=== PATIENT | female | born 1985 | race Caucasian/White ===

== ENCOUNTER 2017-08-24 04:30 | Emergency (ER) | payer MEDICAID ==
[~2017-08-24] VITALS: Ht 175.3 cm; Wt 92.3 kg
[2017-08-24] MEDS ORDERED: SODIUM CHLORIDE FLUSH 10ML SYR IVF ONE (05:00)
[2017-08-24] MEDS ORDERED: CEFAZOLIN PMX 1GM/50ML 50 ML IVPB ONE (05:00)
[2017-08-24] MEDS ORDERED: CEFAZOLIN PMX 1GM/50ML 50 ML ONE ×2 (05:01→05:44)
[2017-08-24 05:32] LABS: MEAN CORPUSCULAR HEMOGLOBIN 31.2 pg (27.0-34.8); MEAN CORPUSCULAR HGB CONC 33.9 g/dL (32.4-35.8); MEAN CORPUSCULAR VOLUME 92.1 fL (80-100); MEAN PLATELET VOLUME 9.9 fL (7.4-10.4); PLATELET COUNT 207 x10^3/uL (130-400)
[2017-08-24 05:49] LABS: MD YES
[2017-08-24 05:51] LABS: <PLATELET ESTIMATE> ADEQUATE; <PLT MORPHOLOGY> NORMAL PLT MORPH; <RBC MORPHOLOGY> NORMAL; BAND#(MANUAL) 0.61 x10^3/uL; BANDS%(MANUAL) 3 % (0-7); LYMPH#(MANUAL) 0.82 x10^3/uL (1-3.4); LYMPHS% (MANUAL) 4 % (22-44); METAMYELOCYTES% (MANUAL) 1 % (0-1); MONOS#(MANUAL) 1.22 x10^3/uL (0.3-2.7); MONOS% (MANUAL) 6 % (2-9); SEG#(MANUAL) 17.54 x10^3/uL (1.8-6.8); SEGS% (MANUAL) 86 % (42-75)
[2017-08-24] MEDS ORDERED: CEFAZOLIN PMX 1GM/50ML 50 ML IV ONE (06:00)
[2017-08-24 06:07] VITALS: BP 121/74
== END 2017-08-24 06:14 | disposition home or self-care (01) ==
LOC: ED 06:08
DX: L03.012 Cellulitis of left finger (principal); D72.829 Elevated white blood cell count, unspecified; M65.142 Other infective (teno)synovitis, left hand
CPT/HCPCS: 29125; 36415; 73130; 85025; 96365; 99285; J0690

== ENCOUNTER 2017-08-24 14:49 | Emergency (ER) | payer MEDICAID ==
[~2017-08-24] VITALS: Ht 175.3 cm; Wt 92.7 kg
[2017-08-24 14:53] VITALS: BP 138/88
[2017-08-24 15:46] LABS: BASOPHILS # (AUTO) 0.09 x10^3/uL (0-0.1); BASOPHILS % (AUTO) 1 % (0-1); EOSINOPHILS # (AUTO) 0.16 x10^3/uL (0-0.4); EOSINOPHILS % (AUTO) 1 % (1-7); LYMPHOCYTES # (AUTO) 1.14 x10^3/uL (1-3.4); LYMPHOCYTES % (AUTO) 7 % (22-44); MD NO; MEAN CORPUSCULAR HEMOGLOBIN 31.4 pg (27.0-34.8); MEAN CORPUSCULAR VOLUME 92.3 fL (80-100); MEAN PLATELET VOLUME 9.7 fL (7.4-10.4); MONOCYTES # (AUTO) 0.98 x10^3/uL (0.2-0.8); MONOCYTES % (AUTO) 6 % (2-9); NEUTROPHILS % (AUTO) 85 % (42-75); PLATELET COUNT 190 x10^3/uL (130-400); RED CELL DISTRIBUTION WIDTH 13.6 % (9.6-15.2)
[2017-08-24] MEDS ORDERED: CEFAZOLIN 1,000 MG ONE (15:49)
[2017-08-24] MEDS ORDERED: CEFAZOLIN 1,000 MG IM ONE (16:00)
== END 2017-08-24 16:25 | disposition home or self-care (01) ==
LOC: ED 16:20
DX: L03.114 Cellulitis of left upper limb (principal)
CPT/HCPCS: 36415; 85025; 96372; 99283; J0690

== ENCOUNTER 2019-10-17 05:30 | Inpatient (IN) | payer MEDICAID ==
[~2019-10-17] VITALS: Ht 175.3 cm; Wt 107.3 kg
[2019-10-17] MEDS ORDERED: NEWBORN KIT ONE (06:02)
[2019-10-17] MEDS ORDERED: LIDOCAINE 1%, 20ML ONE (06:02)
[2019-10-17] MEDS ORDERED: OXYTOCIN 30U/ 0.9% NaCL 500ML 500 ML ONE (06:02)
[2019-10-17] MEDS ORDERED: OXYTOCIN 30U/ 0.9% NaCL 500ML 500 ML IV ONE (06:08)
[2019-10-17] MEDS ORDERED: OXYTOCIN 30U/ 0.9% NaCL 500ML 500 ML IV PRN (06:08)
[2019-10-17] MEDS: LACTATED RINGERS 1,000 ML IV SCH ×4 (06:08→13:32)
[2019-10-17] MEDS: D5%-LACTATED RINGERS 1,000 ML IV SCH ×3 (06:08→21:29)
[2019-10-17] MEDS ORDERED: AMPICILLIN 2 GM in SODIUM CHLORIDE 0.9% 100 ML IVPB STA (06:08)
[2019-10-17] MEDS ORDERED: TERBUTALINE 1 MG/ML, 1ML IVPush PRN (06:30)
[2019-10-17] MEDS ORDERED: CALCIUM CARBONATE 500 MG TAB.CHEW PO PRN (06:30)
[2019-10-17] MEDS ORDERED: TERBUTALINE 1 MG/ML, 1ML SQ PRN (06:30)
[2019-10-17] MEDS ORDERED: FENTANYL PF 100 MCG/2ML IV PRN (06:30)
[2019-10-17] MEDS: AMPICILLIN 1 GM in SODIUM CHLORIDE 0.9% 100 ML IVPB SCH ×5 (06:30→22:46)
[2019-10-17 06:43] LABS: BASOPHILS # (AUTO) 0.03 x10^3/uL (0-0.1); BASOPHILS % (AUTO) 0 % (0-1); EOSINOPHILS # (AUTO) 0.15 x10^3/uL (0-0.4); EOSINOPHILS % (AUTO) 1 % (1-7); LYMPHOCYTES # (AUTO) 1.14 x10^3/uL (1-3.4); LYMPHOCYTES % (AUTO) 11 % (22-44); MD NO; MEAN CORPUSCULAR HEMOGLOBIN 30.6 pg (27.0-34.8); MEAN CORPUSCULAR HGB CONC 33.6 g/dL (32.4-35.8); MEAN PLATELET VOLUME 10.4 fL (7.4-10.4); MONOCYTES # (AUTO) 0.67 x10^3/uL (0.2-0.8); MONOCYTES % (AUTO) 7 % (2-9); NEUTROPHILS # (AUTO) 8.31 x10^3/uL (1.8-6.8); NEUTROPHILS % (AUTO) 81 % (42-75); PLATELET COUNT 166 x10^3/uL (130-400); RED BLOOD COUNT 4.15 x10^6/uL (3.82-5.3); RED CELL DISTRIBUTION WIDTH 14.4 % (9.6-15.2)
[2019-10-17 06:51] LABS: ALANINE AMINOTRANSFERASE 13 U/L (12-78); ALBUMIN 2.7 g/dL (3.4-5.0); ANION GAP 9 mmol/L (5-15); CHLORIDE 110 mmol/L (98-107); CREATININE 0.73 mg/dL (0.55-1.02)
[2019-10-17 06:53] LABS: ALKALINE PHOSPHATASE 118 U/L (45-117); BILIRUBIN,TOTAL 0.2 mg/dL (0.2-1.0); TOTAL PROTEIN 6.3 g/dL (6.4-8.2)
[2019-10-17 07:00] LABS: BILIRUBIN, DIRECT < 0.1 mg/dL (0.1-0.2)
[2019-10-17 07:05] VITALS: BP 135/85
[2019-10-17 07:09] LABS: MICROSCOPIC INDICATED
[2019-10-17] MEDS ORDERED: BUPIVACAINE 0.25% ONE ×3 (12:56→18:54)
[2019-10-17] MEDS ORDERED: FENTANYL/BUPIV./NS/PF 250 ML EPIDCONT ONE (12:56)
[2019-10-17] MEDS ORDERED: ONDANSETRON 2MG/ML, 2ML ONE (17:42)
[2019-10-17] MEDS: ONDANSETRON 2MG/ML, 2ML IVPush PRN (17:45)
[2019-10-18] MEDS ORDERED: FENTANYL/BUPIV./NS/PF 250 ML EPIDCONT ONE (02:26)
[2019-10-18] MEDS: AMPICILLIN 1 GM in SODIUM CHLORIDE 0.9% 100 ML IVPB SCH ×3 (02:43→11:06)
[2019-10-18] MEDS: FENTANYL PF 100 MCG/2ML IVPush PRN ×2 (04:35→07:21)
[2019-10-18] MEDS ORDERED: BUPIVACAINE 0.25% ONE ×2 (04:59→09:15)
[2019-10-18] MEDS: D5%-LACTATED RINGERS 1,000 ML IV SCH (06:08)
[2019-10-18] MEDS ORDERED: FENTANYL PF 100 MCG/2ML ONE ×2 (06:54→07:19)
[2019-10-18] MEDS ORDERED: OXYTOCIN 30U/ 0.9% NaCL 500ML 500 ML ONE ×2 (07:29→13:24)
[2019-10-18] MEDS: LACTATED RINGERS 1,000 ML IV SCH ×2 (08:08→22:08)
[2019-10-18] MEDS ORDERED: LIDOCAINE/MPF 2%-EPI 1:200K, 20 ML ONE (08:17)
[2019-10-18] MEDS ORDERED: ONDANSETRON 2MG/ML, 2ML ONE (09:10)
[2019-10-18] MEDS: ONDANSETRON 2MG/ML, 2ML IVPush PRN (09:12)
[2019-10-18] MEDS ORDERED: CARBOPROST TROMETHAMINE 250 MCG/ML, 1ML IM PRN (12:30)
[2019-10-18] MEDS ORDERED: RHOGAM FROM BLOOD BANK 1 NOTE EA IM/IV ONE (12:30)
[2019-10-18] MEDS ORDERED: MISOPROSTOL 200 MCG TABLET PR PRN (12:30)
[2019-10-18] MEDS ORDERED: METHYLERGONOVINE 0.2 MG/ML IM PRN (12:30)
[2019-10-18] MEDS ORDERED: ONDANSETRON 2MG/ML, 2ML IV PRN (12:30)
[2019-10-18] MEDS ORDERED: ACETAMINOPHEN 325 MG TABLET PO PRN ×2 (12:30)
[2019-10-18] MEDS ORDERED: HYDROcodone/APAP 5/325 TABLET PO PRN ×2 (12:30)
[2019-10-18] MEDS ORDERED: OXYTOCIN 10 UNITS/ML, 1ML IM PRN (12:30)
[2019-10-18] MEDS ORDERED: SIMETHICONE 80 MG CHEW TAB PO PRN (12:30)
[2019-10-18] MEDS: OXYTOCIN 30U/ 0.9% NaCL 500ML 500 ML IV SCH ×2 (13:40→22:07)
[2019-10-18 15:35] VITALS: BP 112/69
[2019-10-18 19:45] VITALS: BP 127/73
[2019-10-18 20:13] LABS: MEAN CORPUSCULAR HEMOGLOBIN 30.6 pg (27.0-34.8); MEAN CORPUSCULAR HGB CONC 33.4 g/dL (32.4-35.8); MEAN CORPUSCULAR VOLUME 91.5 fL (80-100); MEAN PLATELET VOLUME 10.1 fL (7.4-10.4); PLATELET COUNT 170 x10^3/uL (130-400); RED BLOOD COUNT 3.92 x10^6/uL (3.82-5.3); RED CELL DISTRIBUTION WIDTH 14.3 % (9.6-15.2)
[2019-10-18 20:28] LABS: BASOPHILS # (AUTO) 0.01 x10^3/uL (0-0.1); BASOPHILS % (AUTO) 0 % (0-1); EOSINOPHILS # (AUTO) 0.05 x10^3/uL (0-0.4); EOSINOPHILS % (AUTO) 0 % (1-7); LYMPHOCYTES # (AUTO) 0.92 x10^3/uL (1-3.4); LYMPHOCYTES % (AUTO) 5 % (22-44); MD SCAN; MONOCYTES # (AUTO) 0.93 x10^3/uL (0.2-0.8); MONOCYTES % (AUTO) 5 % (2-9); NEUTROPHILS % (AUTO) 90 % (42-75)
[2019-10-18] MEDS: IBUPROFEN 600 MG TABLET PO PRN (22:00)
[2019-10-18] MEDS: DOCUSATE 100 MG CAPSULE PO PRN (22:00)
[2019-10-19 00:41] VITALS: BP 113/75
[2019-10-19 03:54] VITALS: BP 111/72
[2019-10-19] MEDS: LACTATED RINGERS 1,000 ML IV SCH ×2 (06:08→14:08)
[2019-10-19 08:00] VITALS: BP 130/82
[2019-10-19] MEDS: OXYTOCIN 30U/ 0.9% NaCL 500ML 500 ML IV SCH (08:07)
[2019-10-19] MEDS: PRENATAL VIT/IRON/FA 1 EACH TABLET PO SCH (09:00)
[2019-10-19 12:00] VITALS: BP 113/78
[2019-10-19 16:00] VITALS: BP 128/78
[2019-10-19 19:50] VITALS: BP 117/73
[2019-10-19] MEDS: DOCUSATE 100 MG CAPSULE PO PRN (20:01)
[2019-10-19] MEDS: IBUPROFEN 600 MG TABLET PO PRN (20:07)
[2019-10-20] MEDS: PRENATAL VIT/IRON/FA 1 EACH TABLET PO SCH (07:53)
[2019-10-20] MEDS: DOCUSATE 100 MG CAPSULE PO PRN (07:53)
[2019-10-20 08:00] VITALS: BP 115/77
[2019-10-20] MEDS ORDERED: IBUP-1222 PO (11:55)
[2019-10-20] MEDS ORDERED: HYDR-3240 PO (11:55)
[2019-10-20] MEDS ORDERED: SENN-92 PO (11:55)
[2019-10-20] MEDS ORDERED: MEASLES,MUMPS&RUBELLA VACC/PF 0.5 ML SQ-VACC ONE ×2 (12:39→13:00)
== END 2019-10-20 13:20 | disposition home or self-care (01) | DRG 807 ==
LOC: LDIP 05:30 → 2NW 10-18 14:19
PROVIDERS: ADMIT Obstetrics & Gynecology; ATTEND Obstetrics & Gynecology
PROC: 10E0XZZ Delivery of Products of Conception, External Approach (ICD-10-PCS; principal; 2019-10-18)
PROC: 0HQ9XZZ Repair Perineum Skin, External Approach (ICD-10-PCS; 2019-10-18)
PROC: 3E033VJ Introduction of Other Hormone into Peripheral Vein, Percutaneous Approach (ICD-10-PCS; 2019-10-18)
PROC: 3E0R3BZ Introduction of Anesthetic Agent into Spinal Canal, Percutaneous Approach (ICD-10-PCS; 2019-10-18)
PROC: 00HU33Z Insertion of Infusion Device into Spinal Canal, Percutaneous Approach (ICD-10-PCS; 2019-10-18)
PROC: 10907ZC Drainage of Amniotic Fluid, Therapeutic from Products of Conception, Via Natural or Artificial Opening (ICD-10-PCS; 2019-10-18)
PROC: 3E0234Z Introduction of Serum, Toxoid and Vaccine into Muscle, Percutaneous Approach (ICD-10-PCS; 2019-10-19)
PROC: 3E0134Z Introduction of Serum, Toxoid and Vaccine into Subcutaneous Tissue, Percutaneous Approach (ICD-10-PCS; 2019-10-20)
DX: O99.824 Streptococcus B carrier state complicating childbirth (principal); Z37.0 Single live birth; Z3A.37 37 weeks gestation of pregnancy; O14.04 Mild to moderate pre-eclampsia, complicating childbirth; O16.4 Unspecified maternal hypertension, complicating childbirth; O26.893 Other specified pregnancy related conditions, third trimester; Z67.41 Type O blood, Rh negative; Z20.828 Contact with and (suspected) exposure to other viral communicable diseases; O70.0 First degree perineal laceration during delivery
CPT/HCPCS: 36415; J7121; 80053; 81001; 82248; 82570; 84156; 84550; 85025; 85461; 86592; 86850; 86900; 87635; G0378; J0290; J2405; J2790; J3010; J2590; J7120

== ENCOUNTER 2020-06-25 09:00 | Emergency (ER) | payer MEDICAID ==
[~2020-06-25] VITALS: Ht 175.3 cm; Wt 111.9 kg
[~2020-06-25 09:00] MED LIST: HYDR-2214 PO; IBUP-1222 PO; SENN-92 PO
[2020-06-25 09:03] VITALS: BP 129/87
== END 2020-06-25 10:52 ==
LOC: ED 09:20
DX: M25.561 Pain in right knee (principal)
CPT/HCPCS: 99283